=== PATIENT | female | born 1965 | race Caucasian/White ===

== ENCOUNTER 2016-05-21 06:16 | Observation (INO) | payer BC ==
[2016-05-21] VITALS (8 sets, daily range): BP systolic 97–116; BP diastolic 62–71
[~2016-05-21] VITALS: Ht 154.9 cm; Wt 74.8 kg
[~2016-05-21 06:16] MED LIST: CLINDAMYCIN 600MG PREMIX 50 ML IV ONE
[2016-05-21] MEDS ORDERED: LISI1TAB5 PO (06:37)
[2016-05-21] MEDS ORDERED: VIT1TABL94 PO (06:37)
[2016-05-21] MEDS ORDERED: RANI150C PO (06:37)
[2016-05-21] MEDS ORDERED: ASPI-482 PO (06:37)
[2016-05-21] MEDS ORDERED: SIMV20TA3 PO (06:37)
[2016-05-21] MEDS ORDERED: ALBI30PE SQ (06:37)
[2016-05-21] MEDS ORDERED: ASPI1TAB21 PO (06:37)
[2016-05-21] MEDS ORDERED: OXYB10TA PO (06:37)
[2016-05-21] MEDS ORDERED: METF500T4 PO (06:37)
[2016-05-21] MEDS ORDERED: [UNRECOGNIZED DRUG - OTHER] PO (06:37)
[2016-05-21] MEDS ORDERED: UBID10CA5 PO (06:37)
[2016-05-21] MEDS ORDERED: LABE100T3 PO (06:37)
[2016-05-21 06:49] LABS: BASO # 0.1 x10^3/uL (0.0-0.2); BASO % 2 % (0-3); EOS % 3 % (0-3); HEMATOCRIT 39.7 % (36.0-47.0); HEMOGLOBIN 12.6 g/dL (12.0-15.5); LYMPH % 25 % (24-48); MEAN CORPUSCULAR HEMOGLOBIN 26 pg (25-35); MEAN CORPUSCULAR HGB CONC 32 g/dL (31-37); MEAN CORPUSCULAR VOLUME 82 fL (79-100); MONO % 8 % (0-9); NEUT % 62 % (31-73); PLATELET COUNT 301 x10^3/uL (140-400); RED BLOOD COUNT 4.84 x10^6/uL (3.50-5.40); RED CELL DISTRIBUTION WIDTH 16.5 % (11.5-14.5)
[2016-05-21] MEDS ORDERED: IV RINGERS,LACTATED 1000ML 1,000 ML IV SCH (07:00)
[2016-05-21] MEDS ORDERED: HYDROMORPHONE 2 MG/ML VIAL. IV PRN (07:00)
[2016-05-21] MEDS ORDERED: PROCHLORPERAZINE 10 MG/2 ML VIAL. IV PRN ×2 (07:00→10:30)
[2016-05-21] MEDS ORDERED: FENTANYL PF 100 MCG/2 ML VIAL. IV PRN ×2 (07:00)
[2016-05-21] MEDS ORDERED: MORPHINE SULFATE 2 MG/ML DISP.SYRIN. IV PRN (07:00)
[2016-05-21] MEDS ORDERED: ONDANSETRON PF 4 MG/2 ML VIAL. IV PRN ×2 (07:00→10:30)
[2016-05-21] MEDS ORDERED: LIDOCAINE 1% 1 ML SYRINGE. ID PRN (07:00)
[2016-05-21] MEDS ORDERED: SURGICEL HEMOSTAT 4X8 EACH. ONE (07:47)
[2016-05-21] MEDS ORDERED: METHYLENE BLUE 1% 1 ML VIAL. ONE (07:47)
[2016-05-21] MEDS ORDERED: BUPIVACAINE-EPI 0.25%-1:200000 MPF 30 ML VIAL. ONE (07:47)
[2016-05-21] MEDS ORDERED: ESTROGENS, CONJ VAGINAL CREAM 30GM TUBE. ONE (07:47)
[2016-05-21] MEDS ORDERED: LIDOCAINE 1%/EPI 1:100,000 20 ML VIAL. ONE (07:47)
[2016-05-21] MEDS ORDERED: PROPOFOL 20 ML IV ONE (08:14)
[2016-05-21] MEDS ORDERED: ROCURONIUM 50 MG/5 ML VIAL. ONE ×2 (08:14→09:14)
[2016-05-21] MEDS ORDERED: MIDAZOLAM HCL 2 MG/2 ML VIAL. ONE (08:14)
[2016-05-21] MEDS ORDERED: LIDOCAINE 2% 100 MG/5 ML DISP.SYRIN. ONE (08:14)
[2016-05-21] MEDS ORDERED: FENTANYL PF 250 MCG/5 ML VIAL. ONE (08:14)
[2016-05-21] MEDS ORDERED: ONDANSETRON PF 4 MG/2 ML VIAL. ONE (09:03)
[2016-05-21] MEDS ORDERED: SEVOFLURANE 61 TO 120 MINUTES. IH ONE (09:03)
[2016-05-21] MEDS ORDERED: DEXAMETHASONE SOD PHOS 20 MG/5 ML VIAL. ONE (09:03)
[2016-05-21] MEDS ORDERED: SEVOFLURANE > 120 MINUTES. IH ONE (09:04)
[2016-05-21] MEDS ORDERED: GLYCOPYRROLATE 1 MG/5 ML VIAL. ONE (10:19)
[2016-05-21] MEDS ORDERED: NEOSTIGMINE METHYLSULFATE 5 MG/5 ML SYRINGE. ONE (10:19)
--- NOTE | 2016-05-21 10:25 | PDOC ---
BRIEF OPERATIVE NOTE Pre-Op Diagnosis 1. Cervical Polyp 2. GIGI 2 Post-Op Diagnosis Same Procedure Performed TLH & BSO Surgeon Dr. Garcia Planer Setter Brittaney Anesthesia Type: General Blood Loss 25 ml Specimens Obtained uterus, cervix, Left fallopian tube and ovary Findings nml size uterus, nml Left fallopian tube and TREY; Right fallopian tube and ROV previously removed. Left pelvic sidewall adhesions. Complications none Additional Remarks pt. stable QUINTIN GARCIA Jr, MD May 21, 2016 10:25
[2016-05-21] MEDS ORDERED: ZOLPIDEM 5 MG TABLET. PO PRN (10:30)
[2016-05-21] MEDS ORDERED: 0.9 % SODIUM CHLORIDE 10 ML DISP.SYRIN. IV PRN (10:30)
[2016-05-21] MEDS ORDERED: DEXTROSE 50% 25 GM / 50ML DISP.SYRIN. IV PRN (10:30)
[2016-05-21] MEDS ORDERED: DIPHENHYDRAMINE 50 MG/ML VIAL IV PRN (10:30)
[2016-05-21] MEDS ORDERED: OXYCODONE/APAP 5/325 TABLET. PO PRN (10:30)
[2016-05-21] MEDS ORDERED: SIMETHICONE 80 MG TAB.CHEW PO PRN (10:30)
[2016-05-21] MEDS ORDERED: DIPHENHYDRAMINE HCL 25 MG CAPSULE PO PRN (10:30)
[2016-05-21] MEDS ORDERED: CALCIUM CARBONATE 500 MG TAB.CHEW PO PRN (10:30)
[2016-05-21] MEDS ORDERED: SUGAMMADEX SODIUM 200 MG/2 ML VIAL. IVP ONE (10:56)
--- NOTE | 2016-05-21 12:17 | OP ---
DATE OF SURGERY: 05/21/2016 PREOPERATIVE DIAGNOSES: 1. Cervical polyp. 2. Cervical intraepithelial neoplasia 2. POSTOPERATIVE DIAGNOSES: 1. Cervical polyp. 2. Cervical intraepithelial neoplasia 2. PROCEDURE: TLH-BSO via da Tamar robot. SURGEON: Quintin Garcia MD COTTON BALL BAGGER: Brittaney. ANESTHESIA: GETA. ESTIMATED BLOOD LOSS: 25 mL. COMPLICATIONS: None. FINDINGS: Normal size uterus. Normal left fallopian tube and ovary. Right fallopian tube and ovary previously removed. The left pelvic sidewall adhesions. SUMMARY: A 50-year-old female with cervical polyp and CIN2. The patient also has a family history of female cancers. The patient was counseled on definitive treatment in the form of TLH-BSO via da Tamar robot. Risks, benefits and expectations and she voiced a clear understanding to proceed. DESCRIPTION OF PROCEDURE: The patient was taken to surgery suite and placed in dorsal lithotomy position. She was prepped with Betadine solution for vaginal prep and ChloraPrep for abdominal prep. After adequate anesthesia, curved Deavers were placed in the anterior and posterior vaginal wall to expose the cervix. The cervical polyp was removed with the ring forceps. The RONNIE uterine manipulator was then placed. The curved Inderjit was then removed. Attention was now placed on abdomen. Small transverse skin incision was made just above the umbilicus. The Veress needle was then placed through this supraumbilical incision site. The abdomen was allowed to insufflate up to 1-1/2 liters of CO2 gas. The Veress needle was then removed. The 8-mm trocar was placed. The camera was then positioned. The intra-abdominal cavity was visualized. Two additional incisions made in the left and right lower quadrant in which 8-mm trocars were placed. An accessory port was placed in the left upper quadrant, which was a 5-mm port. The da Tamar robot was then docked in normal fashion. The uterus appeared small and normal. The left fallopian tube and ovary were visualized and appeared normal with adhesions to the left pelvic sidewall. The right fallopian tube and ovary were absent from previous surgery. With the aid of the bipolar cautery and the vessel sealer, the left infundibulopelvic ligament was coagulated and dissected. The left round ligament was coagulated and dissected. The left fallopian tube and ovary were well adhesed to the left pelvic sidewall which were meticulously dissected with the hook monopolar cautery as well as the vessel sealer. The ovary and partial left fallopian tube was removed through the 8-mm port. We then continued with procedure. Left broad ligament was coagulated and dissected. Left uterine artery was coagulated and dissected. Same process took place with the right adnexa. The bladder flap was created using blunt dissection along with the vessel sealer. A spatula was utilized to colpotomy at the level of the vaginal ring. The uterus, cervix, and left fallopian tube were then removed. The vaginal cuff was reapproximated using a V-Loc suture in a running fashion. Suction irrigation was utilized to verify good hemostasis. A small amount of normal saline was left in posterior cul-de-sac. The trocars were then removed under direct visualization. The abdomen was allowed to deflate as much as possible along with mechanical manipulation. The four skin incisions were closed at the skin level using 4-0 Vicryl suture in subcuticular manner. 0.25% Marcaine with epinephrine was injected at each incision site. A Premarin soaked vaginal packing was also placed. The patient tolerated the procedure well and was taken to recovery room in stable condition. Sponge and needle count correct x 3. QUINTIN GARCIA MD DR: LESLYE/jose ramon JOB#: [id number] / [id number]
[2016-05-21] MEDS: KETOROLAC TROMETHAMINE 30 MG/ML SYRINGE. IV PRN ×2 (14:31→21:06)
[2016-05-21] MEDS: GABAPENTIN 300 MG CAPSULE. PO SCH (21:05)
[2016-05-22] MEDS: GABAPENTIN 300 MG CAPSULE. PO SCH (05:19)
[2016-05-22 05:40] VITALS: BP 101/71
[2016-05-22 05:40] LABS: BASO # 0.1 x10^3/uL (0.0-0.2); BASO % 0 % (0-3); EOS % 0 % (0-3); HEMATOCRIT 32.5 % (36.0-47.0); HEMOGLOBIN 10.6 g/dL (12.0-15.5); LYMPH # 1.7 x10^3/uL (1.0-4.8); LYMPH % 9 % (24-48); MEAN CORPUSCULAR HEMOGLOBIN 26 pg (25-35); MEAN CORPUSCULAR HGB CONC 33 g/dL (31-37); MEAN CORPUSCULAR VOLUME 81 fL (79-100); MONO % 8 % (0-9); NEUT % 83 % (31-73); PLATELET COUNT 271 x10^3/uL (140-400); RED BLOOD COUNT 4.03 x10^6/uL (3.50-5.40); RED CELL DISTRIBUTION WIDTH 16.3 % (11.5-14.5)
[2016-05-22 08:15] LABS: PLT ESTIMATE ADEQUATE (ADEQUATE)
[2016-05-22 08:16] LABS: ANISOCYTOSIS SLIGHT; OVALOCYTES MOD
--- NOTE | 2016-05-22 08:38 | PDOC ---
SURGICAL PROGRESS NOTE Subjective Pt. feeling well. Pain controlled. SHe is tolerating regular diet. Vital Signs Vital Signs Date Time Temp Pulse Resp B/P Pulse Ox O2 Delivery O2 Flow Rate FiO2 05/22/16 05:40 97.7 88 101/71 91 Nasal Cannula 2.0 97.7 05/21/16 23:04 18 I&O Intake and Output 05/22/16 07:00 Intake Total 1975 ml Output Total 1175 ml Balance 800 ml Intake Oral 950 ml Other 1025 ml Output Urine Total 1175 ml PATIENT HAS A CARREON: No General: Alert, Oriented X3, Cooperative HEENT: Atraumatic Lungs: Clear to auscultation Heart: Regular rate Abdomen: Normal bowel sounds, Soft, No tenderness, No masses Extremities: No edema Neuro: Normal gait Psych/Mental Status: Mental status NL Labs Laboratory Tests Test 05/21/16 06:40 05/21/16 06:51 05/21/16 12:24 05/22/16 04:54 White Blood Count 8.0x10^3/uL (4.0-11.0) 19.0x10^3/uL (4.0-11.0) Red Blood Count 4.84x10^6/uL (3.50-5.40) 4.03x10^6/uL (3.50-5.40) Hemoglobin 12.6g/dL (12.0-15.5) 10.6g/dL (12.0-15.5) Hematocrit 39.7% (36.0-47.0) 32.5% (36.0-47.0) Mean Corpuscular Volume 82fL (79-100) 81fL (79-100) Mean Corpuscular Hemoglobin 26pg (25-35) 26pg (25-35) Mean Corpuscular Hemoglobin Concent 32g/dL (31-37) 33g/dL (31-37) Red Cell Distribution Width 16.5% (11.5-14.5) 16.3% (11.5-14.5) Platelet Count 301x10^3/uL (140-400) 271x10^3/uL (140-400) Neutrophils (%) (Auto) 62% (31-73) 83% (31-73) Lymphocytes (%) (Auto) 25% (24-48) 9% (24-48) Monocytes (%) (Auto) 8% (0-9) 8% (0-9) Eosinophils (%) (Auto) 3% (0-3) 0% (0-3) Basophils (%) (Auto) 2% (0-3) 0% (0-3) Neutrophils # (Auto) 5.0x10^3uL (1.8-7.7) 15.7x10^3uL (1.8-7.7) Lymphocytes # (Auto) 2.0x10^3/uL (1.0-4.8) 1.7x10^3/uL (1.0-4.8) Monocytes # (Auto) 0.7x10^3/uL (0.0-1.1) 1.5x10^3/uL (0.0-1.1) Eosinophils # (Auto) 0.3x10^3/uL (0.0-0.7) 0.0x10^3/uL (0.0-0.7) Basophils # (Auto) 0.1x10^3/uL (0.0-0.2) 0.1x10^3/uL (0.0-0.2) Glucose (Fingerstick) 132mg/dL (70-99) 201mg/dL (70-99) Segmented Neutrophils % 58% (35-66) Band Neutrophils % 28% (0-9) Lymphocytes % 7% (24-48) Monocytes % 7% (0-10) Platelet Estimate Adequate (ADEQUATE) Anisocytosis Slight Ovalocytes Mod Test 05/22/16 08:14 Glucose (Fingerstick) 127mg/dL (70-99) Laboratory Tests Test 05/21/16 12:24 05/22/16 04:54 05/22/16 08:14 Glucose (Fingerstick) 201mg/dL (70-99) 127mg/dL (70-99) White Blood Count 19.0x10^3/uL (4.0-11.0) Red Blood Count 4.03x10^6/uL (3.50-5.40) Hemoglobin 10.6g/dL (12.0-15.5) Hematocrit 32.5% (36.0-47.0) Mean Corpuscular Volume 81fL (79-100) Mean Corpuscular Hemoglobin 26pg (25-35) Mean Corpuscular Hemoglobin Concent 33g/dL (31-37) Red Cell Distribution Width 16.3% (11.5-14.5) Platelet Count 271x10^3/uL (140-400) Neutrophils (%) (Auto) 83% (31-73) Lymphocytes (%) (Auto) 9% (24-48) Monocytes (%) (Auto) 8% (0-9) Eosinophils (%) (Auto) 0% (0-3) Basophils (%) (Auto) 0% (0-3) Neutrophils # (Auto) 15.7x10^3uL (1.8-7.7) Lymphocytes # (Auto) 1.7x10^3/uL (1.0-4.8) Monocytes # (Auto) 1.5x10^3/uL (0.0-1.1) Eosinophils # (Auto) 0.0x10^3/uL (0.0-0.7) Basophils # (Auto) 0.1x10^3/uL (0.0-0.2) Segmented Neutrophils % 58% (35-66) Band Neutrophils % 28% (0-9) Lymphocytes % 7% (24-48) Monocytes % 7% (0-10) Platelet Estimate Adequate (ADEQUATE) Anisocytosis Slight Ovalocytes Mod Problem List Problems Medical Problems: (1) GIGI II (cervical intraepithelial neoplasia II) Status: Acute (2) Endometrial polyp Status: Acute Assessment/Plan POD#1 s/p TLH & BSO P: D/c home. Problems: QUINTIN HARRISON Jr, MD May 22, 2016 08:38
--- NOTE | 2016-05-22 08:39 | DISCH ---
DISCHARGE INSTRUCTIONS Condition on Discharge Condition on Discharge: Stable Activity After Discharge Activity Instructions for Disc: Activity as tolerated Lifting Instructions after Dis: No heavy lifting Driving Instructions after Dis: No driving for 2 weeks Diet after Discharge Diet after Discharge: Regular Contacting the DRCirilo after DC Call your doctor for: Concerns you may have Follow-Up Follow up with: Dr. Garcia in 2 weeks. QUINTIN GARCIA Jr, MD May 22, 2016 08:39
[2016-05-22] MEDS ORDERED: DOCU-27 PO (08:40)
[2016-05-22] MEDS ORDERED: IBUP-1060 PO (08:40)
[2016-05-22] MEDS ORDERED: OXYC-323 PO (08:40)
[2016-05-22 11:20] VITALS: BP 110/74
[2016-05-22 13:20] LABS: OBC FLU VALID
--- NOTE | 2016-05-25 14:21 | PATHOLOGY ---
PATHOLOGY REPORT * * * * * * * * FINAL DIAGNOSIS: Uterus, left fallopian tube, and separate segment of endocervical tissue, robotic laparoscopic hysterectomy with left salpingo-oophorectomy: - Endocervical polyp. - Focal superficial erosion of exocervix with recent and remote hemorrhage. - Mild chronic cervicitis with focal squamous metaplasia. - Mesonephric remnant gland hyperplasia, cervix, focal. - Atrophic endometrium. - Involutional changes of left fallopian tube. COMMENT: The entire cervix is submitted for histologic evaluation. There is no high-grade GIGI identified. There is a left fallopian tube present. The left ovary is not present. (JPM:mgravinder; d/t: 05/25/16) REPORT ELECTRONICALLY SIGNED BY: Janusz Mock M.D. DATE/TIME: 05/25/2016 14:20 * * * * * * * * GROSS PATHOLOGY: The specimen is received in formalin labeled "Angeline Lacey, uterus, cervix, right and left tube and ovaries". Received is a 20 g, 5.4 x 2.8 x 1.8 cm uterus with attached left fallopian tube weighing 2 g. The uterine serosa is pink-alarcon, smooth and glistening in appearance. The 0.3 cm cervical os is surrounded by purple-alarcon to parekh-brown, smooth ectocervical mucosa. The uterus is oriented using the peritoneal reflection and the entire paracervical margin is inked black. The specimen is opened laterally to reveal a alarcon-parekh endocervical canal measuring 1.5 cm in length. The endometrial cavity is triangular measuring 2.2 cm in length by 1.4 cm in width. The endometrium is pale parekh, granular in appearance and measures <0.1 cm in thickness serial sectioning reveals a light parekh, trabeculated myometrium measuring 0.9 cm in thickness with no grossly distinct nodules or lesions. The left non-fimbriated fallopian tube measures 3.5 cm in length by up to 0.7 cm in diameter. Sectioning reveals a slightly patent lumen and the fallopian tube appears grossly unremarkable. Also received within the specimen container is a segment of pink-parekh, granular-appearing soft tissue measuring 1.8 x 1.4 x 1.0 cm in greatest dimensions. Sectioning reveals cystic cut surfaces. The specimen is submitted as follows: A1 12 to 3:00 cervix A2-A3 3 to 6:00 cervix A4-A5 6 to 9:00 cervix A6 9 to 12:00 cervix A7 anterior endomyometrium A8 posterior endomyometrium A9 left fallopian tube A10 entire separately submitted segment of pink-parekh soft tissue (CAA; 05/22/2016) INITIAL CPT CODE(S): A; 45235 Professional services performed [place] [facility] [place] [address] Technical services performed by [facility] at [address] [place] [address], [address], [place] [address]. SPECIMEN(S) RECEIVED: A.Uterus, cervix, right and left tube and ovaries CLINICAL HISTORY: Cervical polyp, GIGI II PATIENT: ANGELINE LACEY Camron /AGE: 608/19/1965 (Age: 50) PATIENT #: [id number] ALT CASE #: SPECIMEN COLLECTION DATE: 05/21/2016 SPECIMEN RECEIVED DATE: 05/21/2016 [facility] - [address] [place] [address] - PHONE: [phone] * * * END OF REPORT * * *
== END 2016-05-22 14:00 | disposition home or self-care (01) ==
LOC: SURG 06:16 → 3 NORTH 11:30
PROVIDERS: ADMIT Obstetrics & Gynecology; ATTEND Obstetrics & Gynecology
DX: N84.1 Polyp of cervix uteri (principal); N87.1 Moderate cervical dysplasia; N73.6 Female pelvic peritoneal adhesions (postinfective)
CPT/HCPCS: 36415; 58571; 82947; 85007; 85027; 86850; 86900; 86901; 87804; 96374; 96376; A4215; G0378; G0379; J1100; J1885; J2250; J2704; J2710; J3010; J3490; J7030; J7120; Q9968; S2900; 88309; J2405